=== PATIENT | female | born 2000 | race Caucasian/White ===

== ENCOUNTER 2021-07-26 19:59 | Emergency (ER) | payer SELFPAY ==
[2021-07-26] MEDS ORDERED: Lidocaine 1% (PF) 30 ML VIAL ONE (22:40)
[2021-07-26] MEDS ORDERED: Morphine 4 MG/ML VIAL ONE (22:40)
[2021-07-26] MEDS ORDERED: Lidocaine/Transparent Dressing 1 EACH KIT ONE (22:40)
== END 2021-07-26 23:38 | disposition home or self-care (01) ==
LOC: CSHERS 19:59
DX: S31.41XA Laceration without foreign body of vagina and vulva, initial encounter (principal); X58.XXXA Exposure to other specified factors, initial encounter
CPT/HCPCS: 12002; 96372; J2001; J2270